=== PATIENT | male | born 1940 | race Caucasian/White ===

== ENCOUNTER → 2021-09-01 08:41 | Outpatient (CLI) | payer MEDICARE, MEDICAID, SELFPAY ==
[2021-09-01 09:52] LABS: BUN Creatinine Ratio 19.4 (6-22); Blood Urea Nitrogen 26 mg/dL (9-20); Estimated Glomerular Filt Rate 54 mL/min (>60)
== END ==
PROVIDERS: PCP Family Medicine; Referring Provider Urology; Visit Provider Urology
DX: Z87.448 Personal history of other diseases of urinary system (principal)
CPT/HCPCS: 36415; 82565; 84520

== ENCOUNTER → 2021-09-06 08:52 | Outpatient (CLI) | payer MEDICARE, MEDICAID, SELFPAY ==
--- NOTE | 2021-09-06 09:18 | DI.CT.S_ITS ---
PROCEDURE: CT ABDOMEN WO/W CON INDICATIONS: HISTORY OF HEMATURIA TECHNIQUE: Optional 5 mm thick noncontrast images acquired from the diaphragm to the iliac crests. After the administration of intravenous contrast, 5 mm thick images again acquired from the diaphragm to the iliac crests in the arterial and urographic phases. 5 mm thick coronal and sagittal reformats were then acquired. For radiation dose reduction, the following was used: automated exposure control, adjustment of mA and/or kV according to patient size. COMPARISON: [facility], CR, XR RETROGRADE UROGRAPHY, 07/21/2021, 8:56. FINDINGS: Image quality: Excellent. Lung bases: Normal heart size. Heavy aortic valvular, mitral annular, and coronary artery calcification. Reticulation and mild peripheral ground-glass opacity at both lung bases. Genitourinary: The right kidney is atrophic. It measures roughly 7.8 cm in length. The left measures 12.3 cm. There is a right extrarenal pelvis and the proximal loop of a nephroureteral stent is present in the renal pelvis. There is mild renal pelvis urothelial thickening and mild enhancement. No significant right hydronephrosis. Single right renal artery is present. There is coarse calcification of the artery at the distal portion just proximal to branching. The left kidney demonstrates normal and uniform enhancement. No hydronephrosis, mass, or nephrolithiasis. Mild calcification of the left renal artery origin. Excretory phase imaging demonstrates symmetric enhancement and excretion of IV contrast. Other solid organs: Liver is normal in size and enhancement. Gallbladder has a normal wall thickness and no stone. Biliary system is non dilated. Spleen is normal in size and enhancement. No adrenal nodules. The pancreas demonstrates partial fatty replacement. There is a microlobulated mass in the proximal tail measuring 2.8 x 2.9 cm without significant enhancement. No internal calcifications. There are fine septations present. The pancreatic duct is nondilated. Peritoneum and bowel: Unenhanced bowel loops are normal in wall thickness and caliber. No free fluid or air. Nodes and vessels: No retroperitoneal or mesenteri Moderate abdominal aortic atherosclerotic calcification. c adenopathy by size criteria. Aorta and inferior vena cava are normal in caliber. Bones: No suspicious bony lesions. No vertebral body compression fractures. Miscellaneous: Tiny fat containing umbilical hernia. IMPRESSION: 1. Right renal atrophy with mild urothelial thickening and enhancement. This is nonspecific and may indicate infection, inflammation, or malignancy. 2. Decreased right hydronephrosis post stent placement compared to the retrograde urography exam. 3. Lobulated cystic mass in the pancreatic tail is indeterminate. Further characterization of the pancreas with pancreatic protocol MRI is recommended. Dictated by: Gavi Hdz M.D. on 09/06/2021 at 12:41 Approved by: Gavi Hdz M.D. on 09/06/2021 at 12:58
== END ==
PROVIDERS: PCP Family Medicine; Referring Provider Urology; Visit Provider Urology
DX: N13.30 Unspecified hydronephrosis (principal); K86.9 Disease of pancreas, unspecified; N26.1 Atrophy of kidney (terminal); Z96.0 Presence of urogenital implants; Z87.448 Personal history of other diseases of urinary system
CPT/HCPCS: 74170

== ENCOUNTER → 2023-12-27 14:40 | Outpatient (CLI) | payer MEDICARE, MEDICAID, SELFPAY ==
--- NOTE | 2023-12-27 18:22 | DI.NM.S_ITS ---
DATE OF SERVICE: 12/27/2023 PROCEDURE: Exercise stress test. INDICATIONS: Exertional shortness of breath with underlying COPD, moderate aortic stenosis. CARDIAC STRESS: The patient underwent exercise stress test under the supervision of an attending staff. He walked on Joaquim protocol for only 1 minute and 58 seconds, had significant shortness of breath with oxygen saturation dropped to 89%. TREVOR positive 48%. Maximum heart rate 126, which was 91% of target heart rate. Resting blood pressure 150/75 and peak blood pressure 180/80 mmHg. Baseline rhythm is sinus with repolarization changes. The patient has some isolated PACs. During exercise, no convincing ischemic changes. Occasional PACs and PVCs. PVCs were seen in late recovery. No obvious AFib or ventricular tachycardia. No chest pain. CONCLUSION: Markedly diminished exercise capacity. The patient walked on Joaquim protocol for only 1 minute and 58 seconds; however, there were no ischemic changes. Oxygen saturation dropped to 89%. Normal blood pressure response. Achieved 91% of target heart rate. Intermittent PACs and PVCs without any complex arrhythmias. Correlate clinically. Curtis Rodriguez - GERRI/jose/ADRIAN doc#: [id number]/job#: [id number] dd: 12/27/2023 17:19:00 dt: 12/27/2023 18:11:00 DICTATING /COPIES TO: Eve Hayward MD COPIES MNE: L[place]IS;
== END ==
PROVIDERS: PCP Family Medicine; Referring Provider Internal Medicine; Visit Provider Internal Medicine
DX: R06.09 Other forms of dyspnea (principal); J44.9 Chronic obstructive pulmonary disease, unspecified; I35.0 Nonrheumatic aortic (valve) stenosis
CPT/HCPCS: 93017

== ENCOUNTER → 2024-03-18 08:13 | Outpatient (CLI) | payer MEDICARE, MEDICAID, SELFPAY | PROVIDERS: PCP Family Medicine; Referring Provider Internal Medicine; Visit Provider Internal Medicine | DX: R06.09 Other forms of dyspnea (principal); F17.210 Nicotine dependence, cigarettes, uncomplicated; J98.8 Other specified respiratory disorders; R94.2 Abnormal results of pulmonary function studies | CPT/HCPCS: 94060; 94726; 94729 ==

== ENCOUNTER → 2024-08-12 10:22 | Outpatient (CLI) | payer MEDICARE, MEDICAID, SELFPAY ==
[2024-08-12 10:53] LABS: Add Manual Diff / Slide Review NO; Basophils Absolute Auto 0 /uL (0-100); Basophils Percent Auto 0.6 % (0-2); Eosinophils Absolute Auto 300 /uL (0-450); Eosinophils Percent Auto 4.5 % (2-4); Hematocrit 33.3 % (41-53); Hemoglobin 11.2 g/dL (13.5-17.5); Lymphocytes Absolute Auto 1000 /uL (1100-4500); Lymphocytes Percent Auto 16.9 % (25-40); Mean Corpuscular HGB Conc 33.5 % (30-36); Mean Corpuscular Hemoglobin 29.8 PG (26-34); Monocytes Absolute Auto 400 /uL (0-900); Monocytes Percent Auto 5.8 % (3-14); Neutrophils Absolute Auto 4400 /uL (1500-7000); Neutrophils Percent Auto 72.2 % (50-75); Platelet Count 203 X10^3/uL (150-400); Red Blood Cell Count 3.74 X10^6/uL (4.5-5.9); Red Cell Distribution Width 15.4 % (11.6-14.8); White Blood Cell Count 6.1 X10^3/uL (4.5-11.0)
[2024-08-12 11:13] LABS: Erythrocyte Sedimentation Rate 14 MM/HR (0-15)
[2024-08-12 11:26] LABS: C-Reactive Protein Quant < 0.5 mg/dL (<1.0)
[2024-08-14 12:11] LABS: CCP Antibodies IgG/IgA 8 units (0-19)
[2024-08-14 13:14] LABS: Antimyeloperoxidase Antibodies <0.2 units (0.0-0.9); Antiproteinase 3 Antibodies <0.2 units (0.0-0.9); Cytoplasmic C-ANCA <1:20 titer (Neg:<1:20); Perinuclear P-ANCA <1:20 titer (Neg:<1:20)
== END ==
PROVIDERS: PCP Family Medicine; Referring Provider Internal Medicine Critical Care Medicine; Visit Provider Internal Medicine Critical Care Medicine
DX: R06.09 Other forms of dyspnea (principal)
CPT/HCPCS: 36415; 85025; 85651; 86038; 86140; 86200; 86256

== ENCOUNTER → 2024-09-06 13:45 | Outpatient (CLI) | payer MEDICARE, MEDICAID, SELFPAY ==
--- NOTE | 2024-09-06 13:46 | DI.ECHO.S_ITS ---
[facility] : : [address] : : [place] : : [id number] : : Phone: [phone] Echocardiogram Report + + :Name: CATALINO CANALES Study Date: 09/06/2024 Height: 68 in : :[facility] : Weight: 165 lb : : Gender: Male BSA: 1.9 m2 : :: 1940 Age: 84 yrs BP: 136/67 mmHg: :Reason For Study: NONRHEUMATIC AORTIC VALVE STENOSIS : :Ordering Physician: : :Provider Mateo Allen Performed By: Huy Willett : :Referring: SHANNON FIGUEROA : + + Interpretation Summary 1. Hyperdynamic LV contractility with EF > 70%. No WMA. Mild to moderate cLVH. Grade 1 diastolic function. 2. Normal RV contractility. 3. LANCE and RVE present. 4. Moderate with peak velocity 3.13 m/sec. 5. Probable moderate MS with mean gradient most likely over-estimated. 6. Mild TR with estimated PSAP 50 mmHg. 7. No obvious intracardiac shunts. 8. No obvious intracardiac masses/thrombi. 9. No hemodynamically significant pericardial effusion. 10. Low right sided filling pressures. 11. Mildly dilated aortic root and ascending aorta without obvious dissection. Conclusion: Hyperdynamic LV systolic function with moderate valvular heart disease and resultant moderate pulmonary hypertension. Procedure: A two-dimensional transthoracic echocardiogram with color flow and Doppler was performed. The study quality was technically good. There is no prior echocardiogram noted for this patient. The patient was in normal sinus rhythm during the exam. Left Ventricle: The left ventricle is normal in size. There is mild-moderate concentric left ventricular hypertrophy. There is no ventricular septal defect visualized. The left ventricle is hyperdynamic. The ejection fraction is estimated to be 70-75%. Right Ventricle: The right ventricle is moderate to severely dilated. The right ventricular systolic function is normal. Atria: The left atrium is severely dilated. The right atrium is mild to moderately dilated. There is no Doppler evidence for an interatrial shunt. Mitral Valve: There is severe mitral annular calcification. The mitral valve leaflets appear significantly thickened. The mitral valve leaflets are moderately calcified. There is mild to moderate mitral stenosis. There is trace mitral regurgitation. Aortic Valve: The aortic valve is trileaflet. The aortic valve is mildly calcified. There is moderate aortic stenosis. The peak aortic velocity is 3.13 m/sec. The aortic valve mean gradient is 23.1 mmHg. The calculated aortic valve area is 1.4 cm2. No aortic regurgitation is present. Tricuspid Valve: The tricuspid valve leaflets are thin and pliable. There is mild tricuspid regurgitation. The right ventricular systolic pressure is estimated to be at least 50 mmHg based on an estimated right atrial pressure of 3 mm Hg. Pulmonic Valve: The pulmonic valve is not well seen, but is grossly normal. There is no pulmonic valvular regurgitation. Great Vessels: The aortic root is mildly dilated. The ascending aorta is mildly enlarged. The pulmonary artery is normal size. The IVC is of normal diameter and collapses greater than 50% with a sniff. This suggests a low right atrial pressure of 3 mm Hg. Pericardium/ Pleura There is no pericardial effusion. There is no pleural effusion. MMode/2D Measurements & Calculations LVIDd: 5.0 cm LVOT diam: 2.1 cm LVIDs: 2.3 cm Ao root diam: 4.1 cm FS: 54.5 % asc Aorta Diam: 4.0 cm EPSS: 0.92 cm IVSd: 1.5 cm LVPWd: 1.3 cm LV coronado. diameter/BSA (cm/m^2): 2.6 LV sys. diameter/BSA (cm/m^2): 1.2 LA A2 area: 36.9 cm2 RA long axis: 5.7 cm LA A4 area: 30.9 cm2 RA area: 23.2 cm2 LA length (vol): 7.0 cm RA vol: 79.7 ml LA vol: 138.4 ml RA : 42.3 ml/m2 LA vol index: 73.5 ml/m2 IVC diam: 1.2 cm RVD1 (basal): 5.3 cm RVD2 (mid): 3.7 cm TAPSE: 2.8 cm Doppler Measurements & Calculations Ao V2 max: 313.1 cm/sec LVOT Max Mike: 130.2 cm/sec Ao V2 mean: 228.1 cm/sec LV V1 max P.8 mmHg Ao max P.2 mmHg LV V1 VTI: 27.9 cm Ao mean P.1 mmHg MARY GRACE(I,D): 1.4 cm2 Ao V2 VTI: 71.2 cm MARY GRACE(V,D): 1.5 cm2 sev ratio: 0.39 MARY GRACE indexed to BSA (cm^2/m^2): 0.74 MV E max mike: 146.9 cm/sec TR max mike: 343.5 cm/sec MV A max mike: 186.4 cm/sec TR max P.2 mmHg MV E/A: 0.79 PA V2 max: 107.7 cm/sec Med Peak E' Mike: 3.9 cm/sec PA V2 mean: 77.6 cm/sec E/E' med: 37.3 PA mean P.6 mmHg Lat Peak E' Mike: 3.8 cm/sec PA pr(Accel): 51.6 mmHg E/E' lat: 38.3 E/e' average: 37.8 MV dec time: 0.39 sec MVA(VTI): 1.7 cm2 MV V2 mean: 158.5 cm/sec SV(LVOT): 98.8 ml MV mean P.8 mmHg MV V2 VTI: 59.1 cm Reading Physician:SHIN
== END ==
LOC: ECHO 13:46
PROVIDERS: PCP Family Medicine; Referring Provider Internal Medicine; Visit Provider Internal Medicine
DX: I08.3 Combined rheumatic disorders of mitral, aortic and tricuspid valves (principal); I77.810 Thoracic aortic ectasia; I77.89 Other specified disorders of arteries and arterioles
CPT/HCPCS: 93306